=== PATIENT | male | born 1965 | race African-American/Black ===

== ENCOUNTER 2024-07-06 09:52 | Emergency (ER) | payer MEDICAID ==
[~2024-07-06] VITALS: Ht 180.3 cm; Wt 91.0 kg
[2024-07-06 09:55] VITALS: O2SAT 99
[2024-07-06 10:07] VITALS: BP 138/80; PULSE 90; RESP 16; TEMP 36.7; O2SAT 98
[2024-07-06] MEDS ORDERED: CEPH500C2 MT (11:13)
== END 2024-07-06 11:37 | disposition home or self-care (01) ==
LOC: ER 10:04
DX: L03.115 Cellulitis of right lower limb (principal); E11.9 Type 2 diabetes mellitus without complications; I10 Essential (primary) hypertension
CPT/HCPCS: 99283